=== PATIENT | female | born 1940 | race African-American/Black ===

== ENCOUNTER 2016-12-25 14:48 | Emergency (ER) | payer OTHER, MEDICAID ==
[~2016-12-25] VITALS: Ht 160 cm; Wt 53.0 kg
[~2016-12-25 14:48] MED LIST: AMLO5TAB88 PO; ATOR40TA70 PO; BENA10TA3 PO; GLIP5TAB12 PO; METF500T4 PO; PRED5DRO7 EACHEYE; XALAO OP
[2016-12-25] MEDS ORDERED: METH50TA5 PO (15:17)
[2016-12-25] MEDS ORDERED: LORA10TA7 PO (15:17)
[2016-12-25] MEDS ORDERED: FERR-63 PO (15:17)
[2016-12-25] MEDS ORDERED: ASPI-1159 PO (15:17)
[2016-12-25] MEDS ORDERED: ACETAMINOPHEN 325MG TABLET PO ONE (16:15)
[2016-12-25 16:21] LABS: BASOPHILS % 1.2 % (0.0-2.0); EOSINOPHILS % 1.2 % (0.0-5.0); HEMATOCRIT. 32.6 % (36.0-48.0); HEMOGLOBIN. 10.4 g/dL (12.0-16.0); LYMPHOCYTES % 31.3 % (20.0-50.0); MEAN CORPUSCULAR HEMOGLOBIN 26.3 pg (28.0-32.0); MEAN CORPUSCULAR VOLUME 82.5 fL (81.0-99.0); MEAN PLATELET VOLUME 8.6 fl (7.4-10.4); MONOCYTES % 9.7 % (2.0-8.0); NEUTROPHILS % 56.6 % (40.0-76.0); PLATELET 192 x1000/uL (130-400); RED BLOOD CELL COUNT 3.95 mill/uL (4.2-5.4); RED CELL DISTRIBUTION WIDTH 14.7 % (11.6-14.6)
[2016-12-25 16:34] LABS: CARBON DIOXIDE 21 mEq/L (21-32); CHLORIDE 118 mEq/L (98-107)
[2016-12-25 18:20] VITALS: BP 144/78
== END 2016-12-25 18:50 | disposition home or self-care (01) ==
LOC: ER 14:49
DX: S00.83XA Contusion of other part of head, initial encounter (principal); D64.9 Anemia, unspecified; T14.8 Other injury of unspecified body region; E11.9 Type 2 diabetes mellitus without complications; E78.00 Pure hypercholesterolemia, unspecified; H40.9 Unspecified glaucoma; Z79.82 Long term (current) use of aspirin; Z79.899 Other long term (current) drug therapy; W01.0XXA Fall on same level from slipping, tripping and stumbling without subsequent striking against object, initial encounter; Y93.01 Activity, walking, marching and hiking; Y99.8 Other external cause status; Y92.89 Other specified places as the place of occurrence of the external cause
CPT/HCPCS: 36415; 70450; 70486; 71010; 72100; 72125; 73502; 80053; 85025; 93005; 99285